=== PATIENT | female | born 2000 | race African-American/Black ===

== ENCOUNTER 2021-11-09 03:43 | Emergency (ER) | payer MEDICAID, OTHER ==
[~2021-11-09] VITALS: Ht 165.1 cm; Wt 61.7 kg
[2021-11-09 07:41] VITALS: BP 110/71
== END 2021-11-09 08:25 | disposition home or self-care (01) ==
LOC: ER 03:43
DX: S86.912A Strain of unspecified muscle(s) and tendon(s) at lower leg level, left leg, initial encounter (principal); V43.52XA Car driver injured in collision with other type car in traffic accident, initial encounter; Y93.89 Activity, other specified; Y92.89 Other specified places as the place of occurrence of the external cause; Y99.8 Other external cause status
CPT/HCPCS: 73562